=== PATIENT | male | born 1965 | race American Indian/Alaskan Native ===

== ENCOUNTER 2018-09-02 14:21 | Outpatient (CLI) | payer MEDICAID | END 2018-09-02 14:22 | disposition home or self-care (01) | LOC: C.CTH 14:21 ==

== ENCOUNTER 2018-11-06 10:34 | Outpatient (CLI) | payer MEDICAID | END 2018-11-06 10:35 | disposition home or self-care (01) | LOC: C.VASC 10:34 | DX: I73.9 Peripheral vascular disease, unspecified (principal) ==